=== PATIENT | female | born 1995 | race Caucasian/White ===

== ENCOUNTER → 2016-11-23 | Outpatient (CLI) | payer OTHER ==
[~2016-11-23] MED LIST: ALFU10TA6 PO; CIPR500T78 PO; HYDR1TAB8 OP
--- NOTE | 2016-11-23 11:50 | Diagnostic Imaging Report ---
PROCEDURE: CT urinary tract, rule out kidney stone. TECHNIQUE: Multiple contiguous axial images were obtained through the abdomen and pelvis without the use of intravenous contrast. INDICATION: Right flank pain, hematuria. Study compared to 12/22/2014. FINDINGS: There is a minute amount of pelvic free fluid in the cul-de-sac normal in a female patient of this age. The bilobed tubular cystic mass in the right adnexa present on the previous had measured 9.8 cm and has resolved in the interim. There are no opaque kidney stones. There is slight ectasia of the left renal collecting system and renal pelvis similar to the prior. This may reflect elements of parapelvic cysts. No perinephric edema or acute urinary tract pathology. The uterus and the unopacified urinary bladder appeared normal. The liver, gallbladder, spleen, adrenals and pancreas all unremarkable. The left upper pole renal cortical low-density nodule unchanged from prior, presumed cyst about 1 cm. IMPRESSION: No opaque stone or milton hydronephrosis. No acute urinary tract pathology. Resolution of previous right adnexal cystic mass. Trace pelvic free fluid believed physiologic. No inflammatory process, obstructive phenomena or acute abnormalities identified. Dictated by: Dictated on workstation # [id number]
== END ==
LOC: RAD 10:40
PROVIDERS: ATTEND Nurse Practitioner Primary Care
DX: R10.84 Generalized abdominal pain (principal)
CPT/HCPCS: 74176

== ENCOUNTER 2022-01-08 13:23 | Emergency (ER) | payer BC ==
[~2022-01-08] VITALS: Ht 177.8 cm; Wt 63.5 kg
[2022-01-08] MEDS ORDERED: ANTACID SUSP 30 ML UDC (MYLANTA) PO ONE ×2 (14:15→16:00)
[2022-01-08] MEDS ORDERED: LIDOCAINE 2% VISCOUS 15 ML UDC PO ONE ×2 (14:15→16:00)
--- NOTE | 2022-01-08 14:18 | ED Abdominal Pain ---
General Chief Complaint: Abdominal/GI Problems Stated Complaint: ABD PAIN Nursing Triage Note: PT AMB TO FT 3 W C/O MID UPPER ABD PAIN SX 01/05 WORSE W DEEP BREATH, BURPING, AND STANDING. PT REPORTS SHE WENT TO [facility] AND WAS ADVISED SHE HAS A MILD UTI, TAKING ANTIBIOTICS, AND SUSPECTED GALLSTONES, TAKING CARAFATE. PT A&OX4. Allergies and Home Medications Allergies Coded Allergies: No Known Drug Allergies (Unverified , 12/22/14) Patient Home Medication List Alfuzosin Hcl (Uroxatral) 10 Mg Tab.sr.24h, 10 MG PO DAILY Prescribed by: COLIN KARIMI on 12/22/14 1200 Ciprofloxacin HCl (Cipro) 500 Mg Tablet, 500 MG PO BID Prescribed by: COLIN KARIMI on 12/22/14 1200 Hydrocodone Bit/Ibuprofen (Vicoprofen 200-7.5 Mg Tab) 1 Each Tablet, 1-2 EACH OP Q4-6HR PRN for PAIN Prescribed by: COLIN KARIMI on 12/22/14 1200 Past Guulrdr-Epngvl-Etawei Hx Patient Social History Tobacco Use?: No Use of E-Cig and/or Vaping dev: No Substance use?: No Alcohol Use?: No Immunizations Up To Date Influenza Vaccine Up-to-Date: Yes; Up-to-Date First/Initial COVID19 Vaccinat: 2020 Second COVID19 Vaccination Suresh: 2020 Third COVID19 Vaccination Date: 2020 COVID19 Vaccine Construction Driller: Embly Past Medical History Last Menstrual Period: Jan 06, 2022 Reproductive Disorders: No Female Reproductive Disorders: Denies Sexually Transmitted Disease: No HIV/AIDS: No Physical Exam Vital Signs Vital Signs - First Documented 01/08/22 13:50 Temp 36.8 Pulse 76 Resp 20 B/P (MAP) 122/88 (99) Pulse Ox 98 O2 Delivery Room Air Capillary Refill : Less Than 3 Seconds Height/Weight/BMI Height: 5'10" Weight: 130lbs. oz. 58.719970pq; 20.00 BMI Method: Progress/Results/Core Measures Results/Orders Vital Signs/I&O 01/08/22 13:50 Temp 36.8 Pulse 76 Resp 20 B/P (MAP) 122/88 (99) Pulse Ox 98 O2 Delivery Room Air Blood Pressure Mean: 99 Departure Departure-Patient Inst. Referrals: MEGHAN DEAL MD (PCP/Family) Primary Care Physician RAD PAUL MED STUDENT Jan 08, 2022 14:18
--- NOTE | 2022-01-08 14:20 | ED Abdominal Pain ---
General Chief Complaint: Abdominal/GI Problems Stated Complaint: ABD PAIN Nursing Triage Note: PT AMB TO FT 3 W C/O MID UPPER ABD PAIN SX 01/05 WORSE W DEEP BREATH, BURPING, AND STANDING. PT REPORTS SHE WENT TO [facility] AND WAS ADVISED SHE HAS A MILD UTI, TAKING ANTIBIOTICS, AND SUSPECTED GALLSTONES, TAKING CARAFATE. PT A&OX4. Source of Information: Patient Exam Limitations: No Limitations (DANII DEE APRN) History of Present Illness Date Seen by Provider: Jan 08, 2022 Time Seen by Provider: 14:18 Initial Comments To ER by private vehicle with reports of epigastric midline abdominal pain. Worse with deep breathing and burping. Laying flat seems to make the pain better. No fevers or chills. 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 Was told if this worsens she should come to the emergency room. She has been eating a bland diet, had applesauce at 11:00 today which seemed to worsen the pain. Timing/Duration: 1-2 Days Severity/Quality: Moderate Location: Epigastric Radiation: No Radiation Activities at Onset: None Associated Symptoms: Nausea/Vomiting (DANII DEE APRN) Allergies and Home Medications Allergies Coded Allergies: No Known Drug Allergies (Unverified , 12/22/14) Patient Home Medication List Home Medication List Reviewed: Yes (DANII DEE APRN) Alfuzosin Hcl (Uroxatral) 10 Mg Tab.sr.24h, 10 MG PO DAILY Prescribed by: COLIN KARIMI on 12/22/14 1200 Ciprofloxacin HCl (Cipro) 500 Mg Tablet, 500 MG PO BID Prescribed by: COLIN KARIMI on 12/22/14 1200 Hydrocodone Bit/Ibuprofen (Vicoprofen 200-7.5 Mg Tab) 1 Each Tablet, 1-2 EACH OP Q4-6HR PRN for PAIN Prescribed by: COLIN KARIMI on 12/22/14 1200 Ondansetron (Ondansetron Odt) 8 Mg Tab.rapdis, 8 MG PO Q6H PRN for NAUSEA/VOMITING Prescribed by: DANII DEE on 01/08/22 1715 Review of Systems Review of Systems Constitutional: see HPI EENTM: No Symptoms Reported Respiratory: No Symptoms Reported Cardiovascular: No Symptoms Reported Gastrointestinal: See HPI, Abdominal Pain, Nausea Genitourinary: No Symptoms Reported Musculoskeletal: no symptoms reported Skin: no symptoms reported Psychiatric/Neurological: No Symptoms Reported Endocrine: No Symptoms Reported Hematologic/Lymphatic: No Symptoms Reported (DANII DEE APRN) Past Ochlfef-Hyipwu-Pvntjb Hx Patient Social History Tobacco Use?: No Use of E-Cig and/or Vaping dev: No Substance use?: No Alcohol Use?: No (DANII DEE APRN) Immunizations Up To Date Influenza Vaccine Up-to-Date: Yes; Up-to-Date First/Initial COVID19 Vaccinat: 2020 Second COVID19 Vaccination Suresh: 2020 Third COVID19 Vaccination Date: 2020 COVID19 Vaccine Vice President Quality Improvement: Testin (DANII DEE APRN) Past Medical History Last Menstrual Period: Jan 06, 2022 Reproductive Disorders: No Female Reproductive Disorders: Denies Sexually Transmitted Disease: No HIV/AIDS: No (DANII DEE APRN) Physical Exam Vital Signs Vital Signs - First Documented 01/08/22 13:50 Temp 36.8 Pulse 76 Resp 20 B/P (MAP) 122/88 (99) Pulse Ox 98 O2 Delivery Room Air (ARCELIA BRUNNER MD) Vital Signs Capillary Refill : Less Than 3 Seconds (DANII DEE APRN) Height/Weight/BMI Height: 5'10" Weight: 130lbs. oz. 58.526509qa; 20.00 BMI Method: General Appearance: WD/WN, no apparent distress HEENT: PERRL/EOMI, normal ENT inspection Respiratory: normal breath sounds, no respiratory distress, no accessory muscle use Cardiovascular: regular rate, rhythm, no murmur Gastrointestinal: normal bowel sounds, soft, tenderness Extremities: normal range of motion, non-tender Neurologic/Psychiatric: alert, normal mood/affect, oriented x 3 Skin: normal color, warm/dry (DANII DEE APRN) Progress/Results/Core Measures Results/Orders Lab Results Laboratory Tests Test 01/08/22 14:40 01/08/22 16:04 Range/Units White Blood Count 5.2 4.3-11.0 10^3/uL Red Blood Count 4.73 3.80-5.11 10^6/uL Hemoglobin 13.2 11.5-16.0 g/dL Hematocrit 41 35-52 % Mean Corpuscular Volume 87 80-99 fL Mean Corpuscular Hemoglobin 28 25-34 pg Mean Corpuscular Hemoglobin Concent 32 32-36 g/dL Red Cell Distribution Width 14.7 H 10.0-14.5 % Platelet Count 256 130-400 10^3/uL Mean Platelet Volume 9.1 9.0-12.2 fL Immature Granulocyte % (Auto) 0 % Neutrophils (%) (Auto) 54 42-75 % Lymphocytes (%) (Auto) 35 12-44 % Monocytes (%) (Auto) 7 0-12 % Eosinophils (%) (Auto) 3 0-10 % Basophils (%) (Auto) 1 0-10 % Neutrophils # (Auto) 2.8 1.8-7.8 10^3/uL Lymphocytes # (Auto) 1.8 1.0-4.0 10^3/uL Monocytes # (Auto) 0.4 0.0-1.0 10^3/uL Eosinophils # (Auto) 0.2 0.0-0.3 10^3/uL Basophils # (Auto) 0.1 0.0-0.1 10^3/uL Immature Granulocyte # (Auto) 0.0 0.0-0.1 10^3/uL Sodium Level 140 135-145 MMOL/L Potassium Level 3.6 3.6-5.0 MMOL/L Chloride Level 106 98-107 MMOL/L Carbon Dioxide Level 24 21-32 MMOL/L Anion Gap 10 5-14 MMOL/L Blood Urea Nitrogen 7 7-18 MG/DL Creatinine 0.80 0.60-1.30 MG/DL Estimat Glomerular Filtration Rate 104 BUN/Creatinine Ratio 9 Glucose Level 81 70-105 MG/DL Calcium Level 9.7 8.5-10.1 MG/DL Corrected Calcium 9.4 8.5-10.1 MG/DL Total Bilirubin 0.5 0.1-1.0 MG/DL Aspartate Amino Transf (AST/SGOT) 19 5-34 U/L Alanine Aminotransferase (ALT/SGPT) 16 0-55 U/L Alkaline Phosphatase 44 40-136 U/L Total Protein 7.4 6.4-8.2 GM/DL Albumin 4.4 3.2-4.5 GM/DL Lipase 24 8-78 U/L Serum Test, Qualitative NEGATIVE NEGATIVE Urine Color YELLOW Urine Clarity CLEAR Urine pH 8.0 5-9 Urine Specific [place] 1.010 L 1.016-1.022 Urine Protein NEGATIVE NEGATIVE Urine Glucose (UA) NEGATIVE NEGATIVE Urine Ketones NEGATIVE NEGATIVE Urine Nitrite NEGATIVE NEGATIVE Urine Bilirubin NEGATIVE NEGATIVE Urine Urobilinogen 0.2 < = 1.0 MG/DL Urine Leukocyte Esterase NEGATIVE NEGATIVE Urine RBC (Auto) 3+ H NEGATIVE Urine RBC RARE /HPF Urine WBC 2-5 /HPF Urine Squamous Epithelial Cells 0-2 /HPF Urine Crystals NONE /LPF Urine Bacteria TRACE /HPF Urine Casts NONE /LPF Urine Mucus NEGATIVE /LPF Urine Culture Indicated NO (ARCELIA BRUNNER MD) Medications Given in ED Current Medications Medications Dose Ordered Sig/Sha Route Start Time Stop Time Status Last Admin Dose Admin Al Hydrox/Mg Hydrox/Simethicone 30 ml ONCE ONCE PO 01/08/22 16:00 01/08/22 16:01 DC 01/08/22 16:44 30 ML Iohexol 100 ml ONCE ONCE IV 01/08/22 15:15 01/08/22 15:16 DC 01/08/22 15:24 80 ML Ketorolac Tromethamine 15 mg ONCE ONCE IVP 01/08/22 14:30 01/08/22 14:31 DC 01/08/22 14:38 15 MG Lidocaine HCl 15 ml ONCE ONCE PO 01/08/22 16:00 01/08/22 16:01 DC 01/08/22 16:44 15 ML Ondansetron HCl 8 mg ONCE ONCE IVP 01/08/22 14:30 01/08/22 14:31 DC 01/08/22 14:38 8 MG Sodium Chloride 100 ml ONCE ONCE IV 01/08/22 15:15 01/08/22 15:16 DC 01/08/22 15:25 80 ML (ARCELIA BRUNNER MD) Vital Signs/I&O 01/08/22 01/08/22 13:50 17:24 Temp 36.8 Pulse 76 64 Resp 20 20 B/P (MAP) 122/88 (99) 110/74 Pulse Ox 98 99 O2 Delivery Room Air Room Air (ARCELIA BRUNNER MD) Blood Pressure Mean: 99 Departure Communication (Admissions) NAME: DANITA [facility]SCOMB [facility] REC#: [id number] PT STATUS: REG ER : 1995 PHYSICIAN: DANII DEE MAID CLEANING COOKING ADMIT DATE: 01/08/22/ER Signed Date of Exam:01/08/22 CT ABDOMEN/PELVIS W INDICATION: Epigastric pain since Monday. Worse with deep breath. EXAMINATION: CT abdomen and pelvis with contrast, 01/08/2022. COMPARISON: 11/23/2016. FINDINGS: 7 mm nodule at the left lung base which is stable since 2017 therefore considered benign. Remaining visualized lungs clear. The liver, spleen and gallbladder appear unremarkable. Pancreas unremarkable. Adrenal glands normal. There is prominence of the right renal pelvis likely due to an extrarenal pelvis as this is similar to previous examination. The right kidney is otherwise unremarkable. The left kidney contains a simple cyst in the anterior aspect of the midpole. There is marked prominence of the left renal pelvis. This is stable as well likely due to an extrarenal pelvis. No ureteral stone is appreciated. Calcification in the left aspect of the pelvis is likely a phlebolith, stable from previous imaging. There is free fluid in the pelvis which is nonspecific and could be physiologic or perhaps due to a recently ruptured ovarian cyst. There is no free air. The appendix is normal. There are findings of moderate constipation. There is a nonobstructive bowel gas pattern. There are minimally prominent fluid-filled small bowel loops in the right lower quadrant and mid abdomen which could be due to a mild enteritis. There is no acute osseous abnormality. IMPRESSION: 1. Prominence of the renal pelves, left worse than right, likely due to extrarenal pelves given no distal obstructive process appreciated. A simple appearing cyst in the left kidney also noted. 2. Stable nodule at the left lung base is considered benign given stability since 2016. 3. Findings of constipation with possible mild enteritis. 4. Free fluid in the pelvis slightly greater than expected for physiologic findings. A recently ruptured ovarian cyst is a possibility. Otherwise, this could be reactive given the somewhat dilated loops of small bowel. Dictated by: Dictated on workstation # [id number] Dict: 01/08/22 1528 Trans: 01/08/22 1544 [facility] [id number] Interpreted by: BRADLEY NAJERA MD Electronically signed by: BRADLEY NAJERA MD 01/08/22 1544 (DANII DEE APRN) Impression Primary Impression: Epigastric abdominal pain Disposition: 01 HOME, SELF-CARE Condition: Stable Departure-Patient Inst. Decision time for Depature: 17:13 (DANII DEE APRN) Referrals: MEGHAN DEAL MD (PCP/Family) Primary Care Physician Patient Instructions: Severe Abdominal Pain, Adult (DC) Add. Discharge Instructions: 1. The cause of your abdominal pain is not entirely clear though this may be related to a viral gastroenteritis or stomach bug. Return to ER for any concerns. Follow-up with your primary care provider next week. Tylenol and ibuprofen for pain. Nausea medication as needed. All discharge instructions reviewed with patient and/or family. Voiced understanding. Scripts Ondansetron (Ondansetron Odt) 8 Mg Tab.rapdis 8 MG PO Q6H PRN for NAUSEA/VOMITING, #10 TAB Prov: DANII DEE APRN 01/08/22 ATTENDING PHYSICIAN NOTE: I was physically present as attending physician in the emergency department during the care of this patient, but I was not directly involved in the decision making or delivery of care for this patient. (RACELIA BRUNNER MD) DANII DEE APRN Jan 08, 2022 14:20 ARCELIA BRUNNER MD Jan 08, 2022 19:09
[2022-01-08] MEDS ORDERED: ONDANSETRON 4 MG/2 ML (SDV) Z0FRAN IVP ONE (14:30)
[2022-01-08] MEDS ORDERED: LACTATED RINGERS 1,000 ML IV SCH (14:30)
[2022-01-08] MEDS ORDERED: KETOROLAC 30 MG/ML VIAL IVP ONE (14:30)
[2022-01-08 14:46] LABS: BASOPHILS # (AUTO) 0.1 10^3/uL (0.0-0.1); BASOPHILS % (AUTO) 1 % (0-10); EOSINOPHILS # (AUTO) 0.2 10^3/uL (0.0-0.3); EOSINOPHILS % (AUTO) 3 % (0-10); HEMATOCRIT 41 % (35-52); HEMOGLOBIN 13.2 g/dL (11.5-16.0); LYMPHOCYTES # (AUTO) 1.8 10^3/uL (1.0-4.0); LYMPHOCYTES % (AUTO) 35 % (12-44); MEAN CORPUSCULAR HEMOGLOBIN 28 pg (25-34); MEAN CORPUSCULAR HGB CONC 32 g/dL (32-36); MEAN CORPUSCULAR VOLUME 87 fL (80-99); MEAN PLATELET VOLUME 9.1 fL (9.0-12.2); MONOCYTES # (AUTO) 0.4 10^3/uL (0.0-1.0); MONOCYTES % (AUTO) 7 % (0-12); NEUTROPHILS # (AUTO) 2.8 10^3/uL (1.8-7.8); NEUTROPHILS % (AUTO) 54 % (42-75); PLATELET COUNT 256 10^3/uL (130-400); WHITE BLOOD COUNT 5.2 10^3/uL (4.3-11.0)
[2022-01-08 14:57] LABS: ALBUMIN 4.4 GM/DL (3.2-4.5); POTASSIUM 3.6 MMOL/L (3.6-5.0)
[2022-01-08 14:58] LABS: CALCIUM 9.7 MG/DL (8.5-10.1)
[2022-01-08 14:59] LABS: TOTAL PROTEIN 7.4 GM/DL (6.4-8.2)
[2022-01-08 15:01] LABS: BILIRUBIN,TOTAL 0.5 MG/DL (0.1-1.0)
[2022-01-08 15:03] LABS: CREATININE SERUM 0.8 MG/DL (0.60-1.30)
[2022-01-08] MEDS ORDERED: NS 100 ML (IVPB) BAG IV ONE (15:15)
[2022-01-08] MEDS ORDERED: IOHEXOL 350 MG/ML 100 ML (OMNIPAQUE 350) VIAL IV ONE (15:15)
--- NOTE | 2022-01-08 15:38 | Diagnostic Imaging Report ---
INDICATION: Epigastric pain since Monday. Worse with deep breath. EXAMINATION: CT abdomen and pelvis with contrast, 01/08/2022. COMPARISON: 11/23/2016. FINDINGS: 7 mm nodule at the left lung base which is stable since 2017 therefore considered benign. Remaining visualized lungs clear. The liver, spleen and gallbladder appear unremarkable. Pancreas unremarkable. Adrenal glands normal. There is prominence of the right renal pelvis likely due to an extrarenal pelvis as this is similar to previous examination. The right kidney is otherwise unremarkable. The left kidney contains a simple cyst in the anterior aspect of the midpole. There is marked prominence of the left renal pelvis. This is stable as well likely due to an extrarenal pelvis. No ureteral stone is appreciated. Calcification in the left aspect of the pelvis is likely a phlebolith, stable from previous imaging. There is free fluid in the pelvis which is nonspecific and could be physiologic or perhaps due to a recently ruptured ovarian cyst. There is no free air. The appendix is normal. There are findings of moderate constipation. There is a nonobstructive bowel gas pattern. There are minimally prominent fluid-filled small bowel loops in the right lower quadrant and mid abdomen which could be due to a mild enteritis. There is no acute osseous abnormality. IMPRESSION: 1. Prominence of the renal pelves, left worse than right, likely due to extrarenal pelves given no distal obstructive process appreciated. A simple appearing cyst in the left kidney also noted. 2. Stable nodule at the left lung base is considered benign given stability since 2017. 3. Findings of constipation with possible mild enteritis. 4. Free fluid in the pelvis slightly greater than expected for physiologic findings. A recently ruptured ovarian cyst is a possibility. Otherwise, this could be reactive given the somewhat dilated loops of small bowel. Dictated by: Dictated on workstation # [id number]
[2022-01-08 16:13] LABS: BILIRUBIN,URINE NEGATIVE (NEGATIVE); CLARITY,URINE CLEAR; COLOR,URINE YELLOW; GLUCOSE, URINE (UA) NEGATIVE (NEGATIVE); KETONES,URINE NEGATIVE (NEGATIVE); LEUKOCYTE ESTERASE ,URINE NEGATIVE (NEGATIVE); NITRITE,URINE NEGATIVE (NEGATIVE); PROTEIN,URINE NEGATIVE (NEGATIVE)
[2022-01-08 16:22] LABS: BACTERIA,URINE TRACE /HPF; RBC,URINE RARE /HPF
[2022-01-08 16:23] LABS: SQUAMOUS EPITHELIAL CELL,UR 0-2 /HPF
--- NOTE | 2022-01-08 16:52 | Diagnostic Imaging Report ---
INDICATION: Epigastric pain. EXAMINATION: Ultrasound gallbladder, 01/08/2022. FINDINGS: Visualized liver unremarkable. No intrahepatic biliary dilatation is seen. The gallbladder wall does not appear thickened. There is no pericholecystic fluid or stones appreciated. Common duct normal in size. Pancreas, aorta and IVC, as visualized, are unremarkable. Right kidney 10.7 cm in length. No hydronephrosis. No ascites. IMPRESSION: Unremarkable visualized right upper quadrant structures. Dictated by: Dictated on workstation # [id number]
[2022-01-08] MEDS ORDERED: ONDA8TAB13 PO (17:15)
[2022-01-08 17:24] VITALS: BP 110/74
== END 2022-01-08 17:24 | disposition home or self-care (01) ==
LOC: EDUNIT# 13:23 → ER 13:25
DX: R10.13 Epigastric pain (principal); Z32.02 Encounter for pregnancy test, result negative
CPT/HCPCS: 36415; 74177; 76705; 80053; 81000; 83690; 84703; 85025